=== PATIENT | female | born 1990 | race African-American/Black ===

== ENCOUNTER 2020-03-12 13:57 | Inpatient (IN) | payer OTHER ==
[2020-03-12 15:20] VITALS: BMI 29.7
[2020-03-12] MEDS ORDERED: ACETAMINOPHEN 325 MG TABLET (FP) PO PRN (16:03)
[2020-03-12] MEDS ORDERED: MENTHOL/PHENOL 1 EACH UD MM PRN (16:03)
[2020-03-12] MEDS ORDERED: LORazepam 1 MG TABLET PO PRN (16:03)
[2020-03-12] MEDS ORDERED: MAGNESIUM HYDROX 2400MG/30ML ORAL SUSPENSION 30 ML CUP PO PRN (16:03)
[2020-03-12] MEDS ORDERED: MAGNESIUM CITRATE 300 ML BOTTLE PO PRN (16:03)
[2020-03-12] MEDS ORDERED: IBUPROFEN 400 MG TABLET (FP) PO PRN (16:03)
[2020-03-12] MEDS ORDERED: METHOCARBAMOL 500 MG TABLET PO PRN (16:03)
[2020-03-12] MEDS ORDERED: BISMUTH SUBSALICYLATE 524 MG/30 ML UD PO PRN (16:03)
[2020-03-12] MEDS ORDERED: NICOTINE POLACRILEX 2 MG GUM BUC PRN (16:03)
[2020-03-12] MEDS ORDERED: MAG HYDROX/AL HYDROX/SIMETH 30 ML UNIT-DOSE CUP PO PRN (16:03)
[2020-03-12] MEDS: hydrOXYzine PAMOATE 25 MG CAPSULE (FP) PO SCH ×2 (17:23→22:32)
[2020-03-12] MEDS: LORazepam 2 MG TABLET PO SCH ×2 (17:23→22:31)
[2020-03-12] MEDS: THIAMINE HCL 100 MG TABLET (FP) PO SCH (22:32)
[2020-03-12] MEDS: levETIRAcetam 500 MG TABLET (FP) PO SCH (22:32)
[2020-03-12] MEDS: MELATONIN 5 MG TABLETS PO SCH (22:32)
[2020-03-13] MEDS: hydrOXYzine PAMOATE 25 MG CAPSULE (FP) PO SCH ×3 (06:30→13:24)
[2020-03-13] MEDS: LORazepam 2 MG TABLET PO SCH ×2 (06:30→10:21)
[2020-03-13] MEDS ORDERED: NIFEdipine E.R. 30 MG TABLET PO SCH (10:00)
[2020-03-13] MEDS: levETIRAcetam 500 MG TABLET (FP) PO SCH ×2 (10:21→22:19)
[2020-03-13] MEDS: PRENATAL VITAMINS W/ FOLIC ACID TABLET (FP) PO SCH (10:21)
[2020-03-13] MEDS: amLODIPine BESYLATE 5 MG TABLET (FP) PO SCH (10:23)
[2020-03-13] MEDS: ACETAMINOPHEN 325 MG TABLET (FP) PO PRN (10:24)
[2020-03-13] MEDS: ONDANSETRON *ODT* 4 MG TABLET SL PRN (10:24)
[2020-03-13 11:04] LABS: HEMATOCRIT 34.6 % (32.4-45.2); HEMOGLOBIN 11.8 GM/dL (10.7-15.3); MCH 35.7 pg (25.7-33.7); MCHC 34.2 g/dl (32.0-36.0); MEAN CELL VOLUME 104.3 fl (80-96); MEAN PLT VOLUME 9.4 fl (7.5-11.1); PLATELET COUNT 256 K/MM3 (134-434); RBC 3.32 M/mm3 (3.60-5.2); RDW 12.6 % (11.6-15.6); WHITE BLOOD COUNT 5.3 K/mm3 (4.0-10.0)
[2020-03-13 11:08] LABS: POTASSIUM 3.7 mmol/L (3.5-5.1)
[2020-03-13 11:09] LABS: CALCIUM 8.9 mg/dL (8.5-10.1)
[2020-03-13 11:10] LABS: ALBUMIN 3.2 g/dl (3.4-5.0); BLOOD UREA NITROGEN 5.2 mg/dL (7-18)
[2020-03-13 11:13] LABS: CREATININE 0.7 mg/dL (0.55-1.3)
[2020-03-13 11:15] LABS: BILIRUBIN,TOTAL 0.5 mg/dL (0.2-1); TOT PROT 6.2 g/dl (6.4-8.2)
[2020-03-13] MEDS ORDERED: chlordiazePOXIDE HCL 25 MG CAPSULE PO PRN (13:34)
[2020-03-13] MEDS: chlordiazePOXIDE HCL 25 MG CAPSULE PO SCH ×2 (17:19→22:20)
[2020-03-13] MEDS: hydrOXYzine PAMOATE 25 MG CAPSULE (FP) PO PRN (17:22)
[2020-03-13] MEDS: THIAMINE HCL 100 MG TABLET (FP) PO SCH (22:19)
[2020-03-13] MEDS: MELATONIN 5 MG TABLETS PO SCH (22:19)
[2020-03-14] MEDS: chlordiazePOXIDE HCL 25 MG CAPSULE PO SCH ×2 (04:09→10:02)
[2020-03-14] MEDS ORDERED: LORazepam 1 MG TABLET PO SCH (05:00)
[2020-03-14] MEDS: PRENATAL VITAMINS W/ FOLIC ACID TABLET (FP) PO SCH (10:02)
[2020-03-14] MEDS: amLODIPine BESYLATE 5 MG TABLET (FP) PO SCH (10:02)
[2020-03-14] MEDS: levETIRAcetam 500 MG TABLET (FP) PO SCH (10:02)
[2020-03-14] MEDS: ACETAMINOPHEN 325 MG TABLET (FP) PO PRN (10:03)
[2020-03-14] MEDS: ONDANSETRON *ODT* 4 MG TABLET SL PRN (10:04)
[2020-03-14 10:30] LABS: POTASSIUM 3.8 mmol/L (3.5-5.1)
[2020-03-14 10:34] LABS: CALCIUM 8.7 mg/dL (8.5-10.1)
[2020-03-14 10:35] LABS: ALBUMIN 3.2 g/dl (3.4-5.0); BLOOD UREA NITROGEN 6.8 mg/dL (7-18)
[2020-03-14 10:38] LABS: CREATININE 0.7 mg/dL (0.55-1.3)
[2020-03-14 10:39] LABS: TOT PROT 6.6 g/dl (6.4-8.2)
[2020-03-14 10:46] LABS: BASO % 0.7 % (0-2.0); HEMATOCRIT 37.2 % (32.4-45.2); HEMOGLOBIN 12.6 GM/dL (10.7-15.3); LYMPH % 19.5 % (8-40); MCH 35.7 pg (25.7-33.7); MCHC 33.9 g/dl (32.0-36.0); MEAN CELL VOLUME 105.2 fl (80-96); MEAN PLT VOLUME 9.2 fl (7.5-11.1); MONO % 12.5 % (3.8-10.2); NEUT % 66.3 % (42.8-82.8); PLATELET COUNT 285 K/MM3 (134-434); RBC 3.54 M/mm3 (3.60-5.2); WHITE BLOOD COUNT 5.3 K/mm3 (4.0-10.0)
[2020-03-14 12:10] LABS: ANISOCYTOSIS 1+; MACROCYTOSIS 0; PLATELET ESTIMATE NORMAL
[2020-03-14] MEDS: hydrOXYzine PAMOATE 25 MG CAPSULE (FP) PO PRN (15:33)
[2020-03-14 17:18] VITALS: BP 116/65; PULSE 68; TEMP 97.5
[2020-03-15] MEDS ORDERED: LORazepam 0.5 MG TABLET PO PRN
[2020-03-15] MEDS ORDERED: LORazepam 0.5 MG TABLET PO SCH (05:00)
[2020-03-15] MEDS ORDERED: chlordiazePOXIDE HCL 25 MG CAPSULE PO SCH (05:00)
[2020-03-16] MEDS ORDERED: chlordiazePOXIDE HCL 10 MG CAPSULE PO PRN
[2020-03-16] MEDS ORDERED: chlordiazePOXIDE HCL 10 MG CAPSULE PO SCH (05:00)
[2020-03-16] MEDS ORDERED: LORazepam 0.5 MG TABLET PO ONE (05:00)
[2020-03-17] MEDS ORDERED: chlordiazePOXIDE HCL 10 MG CAPSULE PO SCH (05:00)
[2020-03-18] MEDS ORDERED: chlordiazePOXIDE HCL 10 MG CAPSULE PO ONE (05:00)
== END 2020-03-14 17:30 | disposition left against medical advice (07) | DRG 770 ==
LOC: YASAS 13:57 → Y3N 16:30
PROVIDERS: ADMIT Allergy & Immunology; ATTEND Allergy & Immunology
PROC: HZ2ZZZZ Detoxification Services for Substance Abuse Treatment (ICD-10-PCS; principal; 2020-03-12)
DX: F10.230 Alcohol dependence with withdrawal, uncomplicated (principal); F14.10 Cocaine abuse, uncomplicated; F17.210 Nicotine dependence, cigarettes, uncomplicated; I10 Essential (primary) hypertension; J45.909 Unspecified asthma, uncomplicated; R79.89 Other specified abnormal findings of blood chemistry; Z86.69 Personal history of other diseases of the nervous system and sense organs
CPT/HCPCS: 36415; 80053; 80177; 85025; 85027; 86593; 86780; C9803; Q0162; U0003

== ENCOUNTER 2020-05-31 15:49 | Inpatient (IN) | payer OTHER ==
[2020-05-31 17:23] VITALS: BMI 24.3
[2020-05-31] MEDS ORDERED: IBUPROFEN 400 MG TABLET (FP) PO PRN (19:31)
[2020-05-31] MEDS ORDERED: NICOTINE POLACRILEX 2 MG GUM BUC PRN (19:31)
[2020-05-31] MEDS ORDERED: MAGNESIUM CITRATE 300 ML BOTTLE PO PRN (19:31)
[2020-05-31] MEDS ORDERED: hydrOXYzine PAMOATE 25 MG CAPSULE (FP) PO PRN (19:31)
[2020-05-31] MEDS ORDERED: ACETAMINOPHEN 325 MG TABLET (FP) PO PRN ×2 (19:31)
[2020-05-31] MEDS ORDERED: MENTHOL/PHENOL 1 EACH UD MM PRN (19:31)
[2020-05-31] MEDS ORDERED: MAG HYDROX/AL HYDROX/SIMETH 30 ML UNIT-DOSE CUP PO PRN (19:31)
[2020-05-31] MEDS ORDERED: BISMUTH SUBSALICYLATE 524 MG/30 ML UD PO PRN (19:31)
[2020-05-31] MEDS ORDERED: ONDANSETRON *ODT* 4 MG TABLET SL PRN (19:31)
[2020-05-31] MEDS ORDERED: chlordiazePOXIDE HCL 25 MG CAPSULE PO PRN (19:31)
[2020-05-31] MEDS ORDERED: METHOCARBAMOL 500 MG TABLET PO PRN (19:31)
[2020-05-31] MEDS ORDERED: MAGNESIUM HYDROX 2400MG/30ML ORAL SUSPENSION 30 ML CUP PO PRN (19:31)
[2020-05-31] MEDS ORDERED: chlordiazePOXIDE HCL 25 MG CAPSULE PO ONE (21:30)
[2020-05-31] MEDS: chlordiazePOXIDE HCL 25 MG CAPSULE PO SCH (22:22)
[2020-05-31] MEDS: MELATONIN 5 MG TABLETS PO SCH (22:22)
[2020-05-31] MEDS: levETIRAcetam 500 MG TABLET (FP) PO SCH (22:22)
[2020-05-31] MEDS: THIAMINE HCL 100 MG TABLET (FP) PO SCH (22:22)
[2020-06-01] MEDS: chlordiazePOXIDE HCL 25 MG CAPSULE PO SCH ×4 (06:42→22:42)
[2020-06-01] MEDS: amLODIPine BESYLATE 5 MG TABLET (FP) PO SCH (10:15)
[2020-06-01] MEDS: levETIRAcetam 500 MG TABLET (FP) PO SCH ×2 (10:15→22:41)
[2020-06-01] MEDS: PRENATAL VITAMINS W/ FOLIC ACID TABLET (FP) PO SCH (10:15)
[2020-06-01] MEDS ORDERED: GABAPENTIN 100 MG CAPSULE PO PRN (12:41)
[2020-06-01] MEDS: LURASIDONE HCL 40 MG TABLET PO SCH (13:24)
[2020-06-01] MEDS: hydrOXYzine PAMOATE 25 MG CAPSULE (FP) PO PRN (20:49)
[2020-06-01] MEDS: THIAMINE HCL 100 MG TABLET (FP) PO SCH (22:41)
[2020-06-01] MEDS: MELATONIN 5 MG TABLETS PO SCH (22:42)
[2020-06-02] MEDS: hydrOXYzine PAMOATE 25 MG CAPSULE (FP) PO PRN ×2 (02:25→06:18)
[2020-06-02] MEDS: chlordiazePOXIDE HCL 25 MG CAPSULE PO SCH ×2 (06:18→10:00)
[2020-06-02 09:26] VITALS: BP 130/77; PULSE 83; TEMP 97.1
[2020-06-02] MEDS: levETIRAcetam 500 MG TABLET (FP) PO SCH (09:36)
[2020-06-02] MEDS: amLODIPine BESYLATE 5 MG TABLET (FP) PO SCH (09:36)
[2020-06-02] MEDS: PRENATAL VITAMINS W/ FOLIC ACID TABLET (FP) PO SCH (09:36)
[2020-06-02] MEDS: LURASIDONE HCL 40 MG TABLET PO SCH (09:36)
[2020-06-02 09:47] LABS: ALBUMIN 3.7 g/dl (3.4-5.0); BLOOD UREA NITROGEN 7.4 mg/dL (7-18)
[2020-06-02 09:49] LABS: CALCIUM 9.5 mg/dL (8.5-10.1)
[2020-06-02 09:50] LABS: CREATININE 0.7 mg/dL (0.55-1.3)
[2020-06-02 09:51] LABS: BILIRUBIN,TOTAL 0.6 mg/dL (0.2-1); TOT PROT 6.9 g/dl (6.4-8.2)
[2020-06-02 09:54] LABS: BASO % 0.6 % (0-2.0); EOS % 1.5 % (0-4.5); HEMATOCRIT 40.2 % (32.4-45.2); HEMOGLOBIN 13.5 GM/dL (10.7-15.3); LYMPH % 29.6 % (8-40); MCH 34.6 pg (25.7-33.7); MCHC 33.6 g/dl (32.0-36.0); MEAN PLT VOLUME 10.6 fl (7.5-11.1); MONO % 11.4 % (3.8-10.2); NEUT % 56.9 % (42.8-82.8); PLATELET COUNT 184 K/MM3 (134-434); RBC 3.91 M/mm3 (3.60-5.2); WHITE BLOOD COUNT 4.5 K/mm3 (4.0-10.0)
[2020-06-03] MEDS ORDERED: chlordiazePOXIDE HCL 10 MG CAPSULE PO PRN
[2020-06-03] MEDS ORDERED: chlordiazePOXIDE HCL 10 MG CAPSULE PO SCH (05:00)
[2020-06-04] MEDS ORDERED: chlordiazePOXIDE HCL 10 MG CAPSULE PO SCH (05:00)
[2020-06-05] MEDS ORDERED: chlordiazePOXIDE HCL 10 MG CAPSULE PO ONE (05:00)
== END 2020-06-02 13:20 | disposition left against medical advice (07) | DRG 770 ==
LOC: YASAS 15:49 → Y3N 21:16
PROVIDERS: ADMIT Allergy & Immunology; ATTEND Allergy & Immunology
PROC: HZ2ZZZZ Detoxification Services for Substance Abuse Treatment (ICD-10-PCS; principal; 2020-05-31)
DX: F10.230 Alcohol dependence with withdrawal, uncomplicated (principal); F12.10 Cannabis abuse, uncomplicated; F17.210 Nicotine dependence, cigarettes, uncomplicated; F19.282 Other psychoactive substance dependence with psychoactive substance-induced sleep disorder; F19.24 Other psychoactive substance dependence with psychoactive substance-induced mood disorder; F31.9 Bipolar disorder, unspecified; F41.9 Anxiety disorder, unspecified; G40.909 Epilepsy, unspecified, not intractable, without status epilepticus; D57.3 Sickle-cell trait; I10 Essential (primary) hypertension; J45.909 Unspecified asthma, uncomplicated; R74.01 Elevation of levels of liver transaminase levels; Z86.19 Personal history of other infectious and parasitic diseases; Z88.5 Allergy status to narcotic agent; Z56.0 Unemployment, unspecified; Z59.0 Homelessness
CPT/HCPCS: 36415; 80053; 80177; 81025; 85025; 86593; 86780; 93005; 93010; C9803; U0003; U0005